=== PATIENT | male | born 2000 | race Caucasian/White ===

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

== ENCOUNTER 2019-05-01 09:40 | Emergency (ER) | payer OTHER ==
[~2019-05-01] VITALS: Ht 175.3 cm; Wt 91.5 kg
[~2019-05-01 09:40] MED LIST: CRUTCHES MC; NORCO 325 MG-51 TAB PO
[2019-05-01] MEDS ORDERED: DEPAKOTE ER 50500 MG PO (09:56)
[2019-05-01] MEDS ORDERED: PREDNISONE20 MG PO ×2 (10:07)
[2019-05-01 11:49] LABS: MONOSCREEN POSITIVE
[2019-05-01] MEDS ORDERED: MEDROL 4MG DOSPA4 MG PO (15:29)
[2019-05-01] MEDS ORDERED: CLEOCIN HCL300 MG PO (15:29)
[2019-05-01 16:35] VITALS: BP 129/73; PULSE 84; TEMP 99
== END 2019-05-01 16:35 | disposition home or self-care (01) ==
LOC: COL.ER 09:40
PROVIDERS: Emergency Medicine
DX: B27.90 Infectious mononucleosis, unspecified without complication (principal); F17.210 Nicotine dependence, cigarettes, uncomplicated
CPT/HCPCS: J1100; J1885; J7030; Q9967

== ENCOUNTER 2019-05-06 01:13 | Emergency (ER) | payer OTHER ==
[~2019-05-06] VITALS: Ht 175.3 cm; Wt 91.4 kg
[~2019-05-06 01:13] MED LIST changes: +CLEOCIN HCL300 MG PO; +DEPAKOTE ER 50500 MG PO; +MEDROL 4MG DOSPA4 MG PO; +PREDNISONE20 MG PO
[2019-05-06 01:27] VITALS: TEMP 98.9
[2019-05-06] MEDS ORDERED: PEPCID 20MG TAB20 MG PO (03:04)
[2019-05-06 03:41] VITALS: BP 129/64; PULSE 77
== END 2019-05-06 03:41 | disposition home or self-care (01) ==
LOC: COL.ER 01:13
DX: T36.8X5A Adverse effect of other systemic antibiotics, initial encounter (principal); R21 Rash and other nonspecific skin eruption
CPT/HCPCS: J7512